=== PATIENT | male | born 1995 | race Caucasian/White ===

== ENCOUNTER 2020-03-02 10:06 | Emergency (ER) | payer BC ==
[~2020-03-02] VITALS: Ht 185.4 cm; Wt 106.6 kg
[~2020-03-02 10:06] MED LIST: FLEXERIL10 MG PO; MOTRIN800 MG PO; PREDNICOT20 MG PO; TRIMOX500 MG PO
[2020-03-02] MEDS ORDERED: IBUPROFEN600 MG PO (11:01)
[2020-03-02] MEDS ORDERED: NORCO 5-325 TA1 EACH PO (11:01)
[2020-03-02] MEDS ORDERED: TOBRADEX 0.1%-0.5 ML OPH (11:01)
== END 2020-03-02 11:17 | disposition home or self-care (01) ==
LOC: ED 10:06
DX: T15.91XA Foreign body on external eye, part unspecified, right eye, initial encounter (principal); Y92.89 Other specified places as the place of occurrence of the external cause

== ENCOUNTER → 2023-04-18 | Outpatient (CLI) | payer BC ==
[~2023-04-18] MED LIST changes: +IBUPROFEN600 MG PO; +NORCO 5-325 TA1 EACH PO; +TOBRADEX 0.1%-0.5 ML OPH
[2023-04-18 08:59] LABS: BASO # 0.1 10*3/uL (0.0-0.1); BASO % 0.7 % (0.0-1.0); EOS # 0.8 10*3/uL (0.0-0.4); EOS % 9.1 % (1.0-4.0); HEMATOCRIT 47.4 % (42.0-52.0); LYMPH # 2.8 10*3/uL (1.3-4.4); LYMPH % 34.3 % (27.0-41.0); MEAN CELL VOLUME 89.6 fl (80.0-94.0); MEAN CORPUSCULAR HGB 28.7 pg (27.0-31.0); MEAN CORPUSCULAR HGB CONC 32.1 g/dl (33.0-37.0); MEAN PLATELET VOLUME 9.4 fl (9.6-12.3); MONO # 0.8 10*3/uL (0.1-1.0); MONO % 9.1 % (3.0-9.0); NEUT # 3.8 10*3/uL (2.3-7.9); NEUT % 46.4 % (47.0-73.0); PLATELET COUNT AUTOMATED 283 10*3/uL (130-400); RED BLOOD COUNT 5.29 10*6/uL (4.50-5.90); RED CELL DISTRI WIDTH 12.9 % (0-14.5); WHITE BLOOD COUNT 8.3 10*3/uL (4.8-10.8)
[2023-04-18 09:48] LABS: ALKALINE PHOSPHATASE 117 U/L (46-116); BUN 14 mg/dl (9-23); CHLORIDE 106 mmol/L (98-107); CHOLESTEROL 194 mg/dL (<200); FREE T4 1.12 ng/dl (0.89-1.76); LDL CHOLESTEROL 126 mg/dL (9-159); POTASSIUM 4.1 mmol/L (3.4-5.1); SGPT/ALT 47 U/L (5-49); TOTAL PROTEIN 7.5 gm/dL (6.0-8.0); TRIGLYCERIDES 161 mg/dl (<150)
== END | disposition home or self-care (01) ==
LOC: US 08:00 → LAB 08:20
PROVIDERS: ATTEND Nurse Practitioner
DX: E04.9 Nontoxic goiter, unspecified (principal); T17.308A Unspecified foreign body in larynx causing other injury, initial encounter; Z00.00 Encounter for general adult medical examination without abnormal findings